=== PATIENT | female | born 1955 ===

== ENCOUNTER 2024-11-23 13:46 | Emergency (ER) | payer OTHER ==
[~2024-11-23] VITALS: Ht 167.6 cm; Wt 99.8 kg
[2024-11-23] MEDS ORDERED: ASPIRIN 325 MG TABLET.EC PO STA (14:14)
[2024-11-23 15:08] LABS: BASO % 0.4 % (0.1-1.2); EOS # 0.07 (0.04-0.54); EOS % 0.9 % (0.7-7.0); LYMPH # 1.80 (1.18-3.74); LYMPH % 23.5 % (19.3-53.1); MEAN PLATELET VOLUME 10.70 fl (9.4-12.4); MONO # 0.64 (0.24-0.82); MONO % 8.3 % (4.7-12.5); NEUT # 5.12 (1.56-6.13); NEUT % 66.8 % (34.0-71.1); RED CELL DISTRIBUTION WIDTH 13.1 % (11.6-14.4)
[2024-11-23 15:24] LABS: INR 1.0
[2024-11-23 15:36] LABS: ALT/SGPT 25.0 U/L (12-78); AST/SGOT 17.0 U/L (15-37); BUN CREA RATIO 29.0 (7.0-25.0); CREATININE SERUM 0.59 mg/dL (0.55-1.02); GFR 101.67; GLUCOSE FASTING 90.0 mg/dL (65-100); LDH 188.0 U/L (84-246); OSMOLALITY SERUM 284.0 MOSM/KG (275-295); PHOSPHOKINASE CREATININE 69.0 U/L (26-192)
== END 2024-11-23 17:52 | disposition home or self-care (01) ==
LOC: ER 13:46
PROVIDERS: Emergency Medicine
DX: R06.02 Shortness of breath (principal); I10 Essential (primary) hypertension